=== PATIENT | female | born 1955 | race Caucasian/White ===

== ENCOUNTER → 2016-11-30 | Outpatient (CLI) | payer MEDICARE, MEDICAID ==
[~2016-11-30] MED LIST: ACET325T49 PO; ASPI-983 PO; ASPI-999 PO; CPR500T PO; CYCL10TA9 PO; DOCU100C37 PO; FURO-124 PO; FURO40TA4 PO; HYDR-3714 PO; HYDR-3816 PO; HYDR-3820 PO; HYDR-753 PO; HYDR25TA4 PO; Hydrocodone Bit/Acetaminophen PO; IBUP-1773 PO; Ibuprofen PO; LOVA20TA2 PO; MELO15TA14 PO; METF500T4 PO; METO50TA2 PO; MTF500T PO; MTR500T PO; MULT-974 PO; NAPR220C11 PO; OXYB5TAB PO; OXYC-465 PO; POLY17PO23 PO; PRAV40TA2 PO; SENN-20 PO; SIME80TA16 PO; TOLTA4 PO
--- OUTSIDE RECORDS SUMMARY | 2016-11-30 11:59 | XMS REPORT | Continuity of Care Document ---
Author Author [facility] Organization [facility] Address Unknown Phone Unavailable Care Team Providers Care Payroll Professional Name Role Phone STEFANIA KEYS MD PCP Insurance Providers Payer Name Policy Number Subscriber Name Relationship Self Pay Pending Maple [id number] Mily Mcclelland 18 Self / Same As Patient Advance Directives Directive Response Recorded Date/Time Advance Directives No 05/14/15 7:37pm Resuscitation Status Full Code 05/14/15 7:37pm Chief Complaint and Reason for Visit Chief Complaint LOWER LEFT SIDE ABD/BACK PAIN Reason for Visit Acute diverticulitis Dysfunctional uterine bleeding Left lower quadrant pain Dysfunctional uterine bleeding Problems Medical Problems Problem Onset Date Status Acute diverticulitis Unknown Active Dysfunctional uterine bleeding Unknown Active Left lower quadrant pain Unknown Active Dysfunctional uterine bleeding Unknown Active Medications Medication Dose Route Sig Days/Qty Instructions Order Date Discontinued Date Status Multivitamin 1 Tab PO DAILY 05/15/15 Active Metformin HCl (Glucophage) 500 Mg PO TWICE A DAY 05/15/15 Active Metoprolol Tartrate 50 Mg PO TWICE A DAY 05/15/15 Active Furosemide (Lasix) 40 Mg PO 3X WEEKLY PRN SWELLING 05/15/15 Discontinued Hydrochlorothiazide 25 Mg PO DAILY 05/15/15 Active Lovastatin (Mevacor) 20 Mg PO BEDTIME 05/15/15 Active Hydrocodone Bit/Acetaminophen 1 Tab PO EVERY 6 HOURS PRN PAIN Active Metronidazole 500 Mg PO THREE TIMES A DAY 33 Qty 05/17/15 Active Ciprofloxacin 500 Mg PO TWICE A DAY 22 Qty 05/17/15 Active Social History Social History Problem Response Recorded Date/Time Alcohol Use Denies Use 05/14/2015 7:37pm Recreational Drug Use No 05/14/2015 7:37pm Recent Foreign Travel No 05/14/2015 7:37pm Recent Infectious Disease Exposure No 05/14/2015 7:37pm Hospitalization with Isolation Denies 05/19/2015 5:15pm Smoking Status Former Smoker 05/14/2015 7:37pm Query Response Start Date Stop Date Smoking Status Former Smoker Hospital Discharge Instructions Patient Instructions Physician Instructions New, Converted or Re-Newed RX: Transmitted to Pharmacy Goal/Follow Up Appt: Follow up with Dr. Keys in 1-2 weeks Discharge Diet: ADA Diet, Low Residue Activity as Tolerated: Yes Care Plan Goal:: Follow up with Dr. Keys in 1-2 weeks Plan of Care Discharge Date 05/17/15 12:25pm Disposition 30 STILL A PATIENT Instructions/Education Provided Diverticulitis (DC) Prescriptions See Medications Section Functional Status Query Response Date Recorded Comprehension Ability Understands Concepts May 14, 2015 7:37pm Allergies, Adverse Reactions, Alerts Allergen Type Severity Reaction Status Last Updated lisinopril ([id number]) Allergy Unknown Active 05/14/15 HORMONE PILL Allergy Unknown Active 05/14/15 Immunizations Name Given Type Tetanus Booster (TDap) Unknown Historical pneumococcal polysaccharide PPV23 05/16/15 Administered pneumococcal polysaccharide PPV23 05/16/15 Administered Vital Signs Acute Vital Signs Vital Response Date/Time Temperature (Fahrenheit) 96.4 degrees F (97.6 - 99.5) Temperature (Calculated Celsius) 35.54741 degrees C (36.4 - 37.5) Temperature Source Tympanic Pulse Rate (adult) 50 bpm (60 - 90) Respiratory Rate 20 bpm (12 - 24) O2 Sat by Pulse Oximetry 97 % (88 - 100) Blood Pressure 153/76 mm Hg Pain Pain Intensity 0 Height (Feet) 5 feet Height (Inches) 6.00 inches Height (Calculated Centimeters) 167.732098 cm Weight (Pounds) 257 pounds Weight (Ounces) 15.1 oz Weight (Calculated Grams) 705188.318 gm Weight (Calculated Kilograms) 117.328574 kilograms Calculated BMI 38.73 Results Laboratory Results Test Name Result Units Flags Reference Collection Date/Time Result Date/ Time Comments White Blood Count 6.1 10^3/uL 4.3-11.0 05/17/2015 5:05/17/2015 5: 48am Red Blood Count 4.45 10^6/uL 4.35-5.85 05/17/2015 5:05/17/2015 5: 48am Hemoglobin 13.1 G/DL 11.5-16.0 05/17/2015 5:05/17/2015 5:48am Hematocrit 40 % 35-52 05/17/2015 5:05/17/2015 5:48am Mean Corpuscular Volume 90 FL 80-99 05/17/2015 5:05/17/2015 5: 48am Mean Corpuscular Hemoglobin 29 PG 25-34 05/17/2015 5:05/17/2015 5: 48am Mean Corpuscular Hemoglobin Concent 33 G/DL 32-36 05/17/2015 5: 5:48am Red Cell Distribution Width 13.0 % 10.0-14.5 05/17/2015 5:2014 5:48am Platelet Count 273 10^3/uL 130-400 05/17/2015 5:05/17/2015 5:48am Mean Platelet Volume 10.1 FL 7.4-10.4 05/17/2015 5:05/17/2015 5: 48am Neutrophils (%) (Auto) 68 % 42-75 05/15/2015 5:05/15/2015 5:58am Lymphocytes (%) (Auto) 18 % 12-44 05/15/2015 5:05/15/2015 5:58am Monocytes (%) (Auto) 12 % 0-12 05/15/2015 5:05/15/2015 5:58am Eosinophils (%) (Auto) 2 % 0-10 05/15/2015 5:3705/15/2015 5:58am Basophils (%) (Auto) 0 % 0-10 05/15/2015 5:37am 05/15/2015 5:58am Neutrophils # (Auto) 4.7 X 10^3 1.8-7.8 05/15/2015 5:37am 05/15/2015 5: 58am Lymphocytes # (Auto) 1.3 X 10^3 1.0-4.0 05/15/2015 5:37am 05/15/2015 5: 58am Monocytes # (Auto) 0.8 X 10^3 0.0-1.0 05/15/2015 5:37am 05/15/2015 5: 58am Eosinophils # (Auto) 0.2 10^3/uL 0.0-0.3 05/15/2015 5:37am 05/15/2015 5 :58am Basophils # (Auto) 0.0 10^3/uL 0.0-0.1 05/15/2015 5:37am 05/15/2015 5: 58am Urine Color YELLOW 05/14/2015 3:05pm 05/14/2015 3:41pm Urine Clarity VERY CLOUDY * 05/14/2015 3:05pm 05/14/2015 3:41pm Urine pH 7 5-9 05/14/2015 3:05pm 05/14/2015 3:41pm Urine Specific [place] 1.015 * 1.016-1.022 05/14/2015 3:05pm 2014 3:41pm Urine Protein 1+ * NEGATIVE 05/14/2015 3:05pm 05/14/2015 3:41pm Urine Glucose (UA) NEGATIVE NEGATIVE 05/14/2015 3:05pm 05/14/2015 3: 41pm Urine RBC (Auto) 2+ * NEGATIVE 05/14/2015 3:05pm 05/14/2015 3:41pm Urine Ketones 1+ * NEGATIVE 05/14/2015 3:05pm 05/14/2015 3:41pm Urine Nitrite NEGATIVE NEGATIVE 05/14/2015 3:05pm 05/14/2015 3:41pm Urine Bilirubin NEGATIVE NEGATIVE 05/14/2015 3:05pm 05/14/2015 3: 41pm Urine Urobilinogen 4 MG/DL * NORMAL 05/14/2015 3:05pm 05/14/2015 3:41pm Urine Leukocyte Esterase 1+ * NEGATIVE 05/14/2015 3:05pm 05/14/2015 3: 41pm Urine RBC 2-5 /HPF * 05/14/2015 3:05pm 05/14/2015 3:41pm Urine WBC 0-2 /HPF 05/14/2015 3:0505/14/2015 3:41pm Urine Bacteria FEW /HPF * 05/14/2015 3:0505/14/2015 3:41pm Urine Squamous Epithelial Cells 2-5 /HPF 05/14/2015 3:pm 2014 3:41pm Urine Crystals NONE /LPF 05/14/2015 3:05/14/2015 3:41pm Urine Casts NONE /LPF 05/14/2015 3:pm 05/14/2015 3:41pm Urine Mucus SMALL /LPF * 05/14/2015 3:05/14/2015 3:41pm Urine Culture Indicated NO 05/14/2015 3:05/14/2015 3:41pm Sodium Level 140 MMOL/L 135-145 05/17/2015 5:05/17/2015 6:07am Potassium Level 3.5 MMOL/L L 3.6-5.0 05/17/2015 5:05/17/2015 6:07am Chloride Level 108 MMOL/L H 98-107 05/17/2015 5:05/17/2015 6:07am Carbon Dioxide Level 25 MMOL/L 21-32 05/17/2015 5:05/17/2015 6: 07am Blood Urea Nitrogen 8 MG/DL 7-18 05/17/2015 5:05/17/2015 6:07am Creatinine 0.70 MG/DL 0.60-1.30 05/17/2015 5:05/17/2015 6:07am BUN/Creatinine Ratio 11 05/17/2015 5:05/17/2015 6:07am Estimat Glomerular Filtration Rate > 60 05/17/2015 5:2014 6:07am GFR INTERPRETIVE DATA UNITS FOR ESTIMATED GFR (eGFR): mL/min/1.73 M2 REFERENCE RANGE FOR ESTIMATED GFR (eGFR) eGFR NORMAL eGFR >60 MODERATELY DECREASED eGFR 30-59 SEVERLY DECREASED eGFR 15-29 KIDNEY FAILURE <15 (OR DIALYSIS) Glucose Level 97 MG/DL 70-105 05/17/2015 5:05/17/2015 6:07am Glucometer 101 MG/DL 70-110 05/17/2015 10:54am 05/17/2015 11:02am Calcium Level 8.8 MG/DL 8.5-10.1 05/17/2015 5:21am 05/17/2015 6:07am Total Bilirubin 0.5 MG/DL 0.1-1.0 05/15/2015 5:37am 05/15/2015 6:06am Alkaline Phosphatase 66 U/L 40-136 05/15/2015 5:37am 05/15/2015 6:06am Aspartate Amino Transf (AST/SGOT) 18 U/L 5-34 05/15/2015 5:37am 2014 6:06am Alanine Aminotransferase (ALT/SGPT) 18 U/L 0-55 05/15/2015 5:37am 05/15 6:06am Total Protein 6.2 G/DL L 6.4-8.2 05/15/2015 5:37am 05/15/2015 6:06am Albumin 3.4 G/DL 3.2-4.5 05/15/2015 5:37am 05/15/2015 6:06am Lipase 17 U/L 8-78 05/14/2015 4:25pm 05/14/2015 5:00pm Procedures No known history of procedures. Encounters Encounter Location Date/Time Discharged Inpatient [facility] 05/14/15 6:49pm Recent Diagnosis Acute diverticulitis Dysfunctional uterine bleeding Left lower quadrant pain Dysfunctional uterine bleeding
== END ==
LOC: RAD 11:56
PROVIDERS: ATTEND Internal Medicine Cardiovascular Disease
DX: I25.10 Atherosclerotic heart disease of native coronary artery without angina pectoris (principal); G47.33 Obstructive sleep apnea (adult) (pediatric); Z86.73 Personal history of transient ischemic attack (TIA), and cerebral infarction without residual deficits; I10 Essential (primary) hypertension; E78.4 Other hyperlipidemia; E66.01 Morbid (severe) obesity due to excess calories
CPT/HCPCS: 93923

== ENCOUNTER 2020-08-20 05:37 | Outpatient (CLI) | payer MEDICARE, MEDICAID ==
[~2020-08-20] VITALS: Ht 165 cm; Wt 81.8 kg
[~2020-08-20 05:37] MED LIST changes: +ACHYD1T PO; +ASPI-1238 PO; -ASPI-983 PO; +HYDR-34 PO; -HYDR-3816 PO; -HYDR-3820 PO; +HYDR-4196 PO; -HYDR-753 PO; +METF-397 PO; -METF500T4 PO; +METO50TA15 PO; +OXYB-52 PO; -OXYB5TAB PO; -OXYC-465 PO; +OXYC-556 PO; -POLY17PO23 PO; +POLY17PO31 PO
[2020-08-20] MEDS ORDERED: LOVA20TA2 PO (11:33)
[2020-08-20] MEDS ORDERED: MELA10TA2 PO (11:33)
[2020-08-20] MEDS ORDERED: DOCU-238 PO (11:33)
[2020-08-20] MEDS ORDERED: LOSA50TA63 PO (11:33)
[2020-08-20] MEDS ORDERED: MULT-1136 PO (11:33)
[2020-08-20] MEDS ORDERED: PANT40TA52 PO (11:33)
== END 2020-08-20 11:54 | disposition home or self-care (01) ==
LOC: PREOP 05:37
PROVIDERS: ATTEND Orthopaedic Surgery
DX: Z01.818 Encounter for other preprocedural examination (principal)

== ENCOUNTER 2020-08-27 07:47 | Day surgery (SDC) | payer MEDICARE, MEDICAID ==
--- NOTE | 2020-08-18 13:10 | HISTORY AND PHYSICAL ---
DATE OF SERVICE: ADMISSION HISTORY AND PHYSICAL This will be for outpatient surgery on 08/27/2020 for right knee arthroscopy. HISTORY OF PRESENT ILLNESS: The patient is a 65-year-old female who previously underwent right knee arthroplasty was doing very well and she began to experience right anterior knee pain following a fall. Radiographs revealed no abnormalities. CT scan revealed no abnormalities, but the patient has continued to have anterior pain. The patient elected to proceed with arthroscopy for diagnostic purposes and for lysis of adhesions and to assess the patella. REVIEW OF SYSTEMS: No chest pain, no shortness of breath, no dysuria. PAST MEDICAL HISTORY: Irritable bowel syndrome, diverticulitis, diabetes, hypertension, fibromyalgia, neuropathy. PAST SURGICAL HISTORY: Colonoscopy, bilateral total knee arthroplasty, left rotator cuff, appendectomy, tonsillectomy, tubal ligation, right total knee arthroplasty and coronary . SOCIAL HISTORY: The patient denies alcohol, tobacco use. FAMILY HISTORY: Significant for hypothyroidism, ischemic heart disease, hyperlipidemia, hypertension. PRIMARY CARE PROVIDER: Dr. Chatterjee. MEDICATIONS: Cyclobenzaprine, pantoprazole, losartan, rosuvastatin. ALLERGIES: LISINOPRIL, LIPITOR, CIPRO and LYRICA. PHYSICAL EXAMINATION: GENERAL: The patient is well-developed, well-nourished, in no acute distress. HEENT: Normocephalic, atraumatic. Pupils are equal, round, reactive to light. Oropharynx is clear. NECK: Supple, no lymphadenopathy. LUNGS: Clear to auscultation bilaterally. HEART: Regular rate and rhythm. ABDOMEN: Soft, nontender, nondistended. EXTREMITIES: Right knee demonstrates a slight effusion. There is no erythema or warmth. Range of motion is 0/0/120. There is no varus valgus laxity. Negative anterior and posterior drawer. Patella tracks well. IMPRESSION: Right knee adhesions, symptomatic. PLAN: Right knee arthroscopy with lysis of adhesions. The risks, benefits, options, ramifications and recovery were discussed at length with the patient. She understands and wishes to proceed. Job ID: [id number] DocumentID: [id number] Dictated Date: 08/18/2020 11:38:15 Operators Teacher Date: 08/18/2020 13:10:19 Dictated By: JERROD GUADARRAMA MD
[2020-08-27] VITALS (10 sets, daily range): BP systolic 126–145; BP diastolic 78–91
[~2020-08-27] VITALS: Ht 165 cm; Wt 81.8 kg
[~2020-08-27 07:47] MED LIST changes: +DOCU-238 PO; +HYDROcodone/APAP 7.5 MG/325 MG (LORTAB, LORCET PLUS) TABLET PO PRN; +LOSA50TA63 PO; +MELA10TA2 PO; +MULT-1136 PO; +PANT40TA52 PO
[2020-08-27] MEDS ORDERED: LACTATED RINGERS 1,000 ML IV PRN (07:57)
[2020-08-27] MEDS ORDERED: ceFAZolin INJECTION 1,000 MG in WATER (STERILE) FOR INJECTION 10 ML IV ONE (08:00)
[2020-08-27] MEDS ORDERED: FAMOTIDINE 20MG/2ML IV (PEPCID) IV ONE (08:30)
[2020-08-27] MEDS ORDERED: ONDANSETRON 4 MG/2 ML (SDV) Z0FRAN IV ONE (08:30)
[2020-08-27] MEDS ORDERED: morphine PF (DURAMORPH) 10 MG/10 ML AMP ONE (08:57)
[2020-08-27] MEDS ORDERED: BUPIVACAINE 0.25% 30 ML (SENSORCAINE) VIAL ONE (08:57)
[2020-08-27] MEDS ORDERED: proPOfol 200 MG/20 ML (DIPRIVAN) VIAL IV ONE (09:19)
[2020-08-27] MEDS ORDERED: fentaNYL INJECTION 100 MCG/2 ML AMP ONE (09:19)
[2020-08-27] MEDS ORDERED: ONDANSETRON 4 MG/2 ML (SDV) Z0FRAN ONE (09:19)
[2020-08-27] MEDS ORDERED: LIDOCAINE PF 2% 5 ML (XYLOCAINE) VIAL ONE (09:19)
--- NOTE | 2020-08-27 09:19 | Progress Note-Pre Operative ---
Pre-Operative Progress Note H&P Reviewed The H&P was reviewed, patient examined and no changes noted. Date Seen by Provider: Aug 27, 2020 Time Seen by Provider: 09:19 Date H&P Reviewed: Aug 27, 2020 Time H&P Reviewed: 09:19 Pre-Operative Diagnosis: right knee arthrofibrosis JERROD GUADARRAMA MD Aug 27, 2020 09:19
[2020-08-27] MEDS ORDERED: MIDAZOLAM 2 MG/2 ML (VERSED) VIAL ONE (09:20)
[2020-08-27] MEDS ORDERED: SEVOFLURANE (ULTANE) 15 ML INHAL SOLN ONE (09:22)
--- NOTE | 2020-08-27 09:22 | Progress Note-Post Operative ---
Post-Operative Progess Note Surgeon (s)/Ad Writer (s) Surgeon JERROD GUADARRAMA MD Ad Writer: Anselmo Otero Pre-Operative Diagnosis right knee arthrofibrosis Post-Operative Diagnosis right knee arthrofibrosis Procedure & Operative Findings Date of Procedure 08/27/20 Procedure Performed/Findings right knee arthroscopic lysis of adhesion Anesthesia Type GETA Estimated Blood Loss Estimated blood loss (mL): minimal Specimens/Packing Specimens Removed none Packing: none JERROD GUADARRAMA MD Aug 27, 2020 09:22
[2020-08-27] MEDS ORDERED: HYDR-3817 PO (10:59)
--- NOTE | 2020-08-27 11:01 | Anesthesia-General Post-Op ---
General Patient Condition Mental Status/LOC: Same as Preop Cardiovascular: Satisfactory Nausea/Vomiting: Absent Respiratory: Satisfactory Pain: Controlled Complications: Absent Post Op Complications Complications None Follow Up Care/Instructions Patient Instructions None needed. Anesthesia/Patient Condition Patient Condition Patient is doing well, no complaints, stable vital signs, no apparent adverse anesthesia problems. No complications reported per nursing. CHIO DE CRNA Aug 27, 2020 11:01
--- NOTE | 2020-08-27 13:18 | OPERATIVE REPORT ---
DATE OF SERVICE: 08/27/2020 PREOPERATIVE DIAGNOSIS: Right knee adhesions, status post total knee arthroplasty. POSTOPERATIVE DIAGNOSIS: Right knee adhesions, status post total knee arthroplasty. PROCEDURE PERFORMED: Right knee arthroscopic lysis of adhesions. SURGEON: Dash Chambers MD. SURVEY RODMAN: Anselmo Otero, who assisted throughout the procedure and closed the incision. ANESTHESIA: General endotracheal by Jesse Velazco CRNA. TOURNIQUET TIME: Not applicable. ESTIMATED BLOOD LOSS: Minimal. DRAINS: None. COMPLICATIONS: None. POSTOPERATIVE PLAN: Routine arthroscopy protocol. The patient was transferred to the recovery room awake and in stable condition. STATEMENT OF MEDICAL NECESSITY: The patient is a 65-year-old female, who several years ago underwent a right total knee arthroplasty and fell on her knee in January. She has been having anterior knee pain since that point. Radiographs and CT scan revealed no abnormalities. The patient elected to proceed with an arthroscopy for diagnostic purposes as well as for lysis of adhesions. The patient complained of some mild swelling, but denied fever, chills or night sweats. Examination under anesthesia revealed no effusion, range of motion was 0/0/120. There was no varus or valgus laxity. Negative anterior and posterior drawer and the patella tracked well. Arthroscopic findings demonstrated no loosening of the components. The patellar button was intact. There were adhesions in the medial gutter extending into the anterior compartment. No abnormal fluid was noted. No necrotic tissue was noted. DESCRIPTION OF PROCEDURE: After risks and benefits of the procedure were discussed and questions were answered, an informed consent was signed and placed on chart. The operative site was confirmed in the preoperative holding area initialed by the surgeon. The patient was then transferred to the operating room and after adequate levels of general endotracheal anesthetic were obtained, a timeout was called confirming the operative site. The right lower extremity was prepped and draped in the usual sterile fashion. Knee joint was injected with 60 mL of fluid and a standard inferolateral portal placed with arthroscope. Under direct visualization, inferior medial portal was created. The patella was carefully probed with no loosening noted. No fracture lines were noted. The adhesions anteriorly and into the medial gutter were excised with a shaver. The knee was copiously irrigated. The portal sites were closed with 4-0 nylon in a simple interrupted fashion. A soft dressing was applied. The patient was transferred to the recovery room awake and in a stable condition. Job ID: [id number] DocumentID: [id number] Dictated Date: 08/27/2020 10:01:49 Wrapper Cashier Date: 08/27/2020 13:17:44 Dictated By: DASH CHAMBERS MD
--- NOTE | 2020-08-27 14:16 | Physical Therapy Ortho Eval ---
PT Orthopedic Evaluation Type of Surgery Knee Scope (right) Prior Level of Function Current Living Status: Spouse Locomotion (Upon Admit): Independent Established Durable Medical Eq: Front Wheeled Walker Subjective Subjective Agrees to PT. Reports her spouse will assist her at home. Entry Into Home: Stairs With Railing Steps Into Home: 4 Motor Control Motor Control: Motor Control WNL ROM ROM: WFL Strength Strength: WFL Transfer Transfers (B, C, W/C) (FIM): 5 (6 post visit) Gait Gait Assistive Device: FWW Right Lower Extremity: Right Weight Bearing Status RLE: Weight Bearing/Tolerated Left Lower Extremity: Left Weight Bearing Status LLE: Full Weight Bearing Gait (FIM): 5 (6 post visit) Distance (FIM): 3=150 ft Summary/Comments safe and steady gait with FWW. up/down a curb step with cues for sequencing and safety. Treatment Rendered Treatment: Therapeutic Exercises, Gait Train, Step Train Exercise Instruction: Quad Sets, Straight Leg Raise, Heel Slides Assessment/Goals Goal Time Frame: 1 Visit Understands HEP: Yes Plan Treatment Plan: Discharge PT/Family Agrees to Plan: Yes Time Time In: 1206 Time Out: 1229 Total Billed Treatment Time: 23 Billed Treatment Time visit EVM 23 TAWNYA STARKEY PT Aug 27, 2020 14:16
== END 2020-08-27 12:40 | disposition home or self-care (01) ==
LOC: SDC 07:47
PROVIDERS: ATTEND Orthopaedic Surgery
DX: M23.8X1 Other internal derangements of right knee (principal); K58.9 Irritable bowel syndrome, unspecified; E11.9 Type 2 diabetes mellitus without complications; I10 Essential (primary) hypertension; M79.7 Fibromyalgia; G62.9 Polyneuropathy, unspecified; E78.5 Hyperlipidemia, unspecified; F32.9 Major depressive disorder, single episode, unspecified; Z96.651 Presence of right artificial knee joint; Z87.891 Personal history of nicotine dependence; Z79.82 Long term (current) use of aspirin; Z79.899 Other long term (current) drug therapy; Z20.828 Contact with and (suspected) exposure to other viral communicable diseases; Z11.2 Encounter for screening for other bacterial diseases; Z86.718 Personal history of other venous thrombosis and embolism; Z86.711 Personal history of pulmonary embolism; Z87.19 Personal history of other diseases of the digestive system; Z88.1 Allergy status to other antibiotic agents; Z88.8 Allergy status to other drugs, medicaments and biological substances
CPT/HCPCS: 29884; 87081; 97162; U0002; 87635